=== PATIENT | male | born 1955 | race Caucasian/White ===

== ENCOUNTER → 2023-06-25 12:33 | Outpatient (BNVA) | payer OTHER, MEDICARE, SELFPAY | PROVIDERS: Family Provider Family Medicine; PCP Family Medicine; Visit Provider Internal Medicine | DX: R07.9 Chest pain, unspecified (principal); I44.0 Atrioventricular block, first degree | CPT/HCPCS: 93005 ==

== ENCOUNTER 2023-07-22 07:05 | Outpatient (CLI) | payer OTHER, MEDICARE, SELFPAY ==
--- NOTE | 2023-07-22 | ECG_ITS ---
[facility] Test Date: 2023-07-22 Pat Name: Darío Mcgrath Department: Room: Gender: Male Pharmaceutical Sales Specialist: Adriel Pollock : 1955 Requested By: Reggie Weiner Order Number: [id number] Meek MD: Reggie Weiner M.D. Interpretive Statements NAME OF STUDY: EXERCISE SESTAMIBI STRESS TEST INDICATION: [Chest Pain; Shortness of Breath, ] EXERCISE DATA: The patient was exercised by Bandar protocol. Baseline heart rate was 76 beats per minute. Baseline blood pressure was 125/86 millimeters of mercury. Target heart rate was 130 beats per minute. Maximum heart rate achieved was 141 which was 108% of the target heart rate. Maximum blood pressure was 204/92 millimeters of mercury. Total exercise time was 5 minutes and 59 seconds. Maximum METs achieved was 7. The reason for ending the test was maximal effort achieved. The patient complained of shortness of breath during the stress test, which then resolved at the end of the test. ELECTROCARDIOGRAM: BASELINE: Showed sinus rhythm, normal axis, no significant ST-T changes at the baseline noted. [] EXERCISE: At the peak exercise level, [] No significant ST-T changes suggestive of ischemia noted. [] RECOVERY: During the recovery period, heart rate dropped appropriately. No significant ST-T changes in the recovery suggestive of ischemia noted. [] CONCLUSION: 1. Exercise capacity is fair 2. Heart rate response was appropriate. 3. Blood pressure response was appropriate 4. Symptoms not suggestive of ischemia. 5. Electrocardiogram portion of the stress test was not suggestive of ischemia. 6. Nuclear scan will be documented separately. Electronically Signed On 08-07-2023 11:47:56 CDT by Reggie Weiner M.D. [id number]
[2023-07-22 07:33] VITALS: BMI 33.9
--- NOTE | 2023-07-22 07:39 | NMCV_ITS ---
NM bernard perf SPECT r/s* [id number] Darío Mcgrath Age: 68 Gender: M : 1955 Exam Date: 07/22/2023 08:15 Ordering Phys: Reggie Weiner M.D ([email or web address]) Technologist: CONTRERAS Flood Exam Location: [facility] Indications: CHEST PAIN, SHORTNESS OF BREATH STRESS TEST Please see separate stress test report in [facility] for full findings IMAGE PROTOCOL Rest/Stress 1 Exercise Day Radiopharmaceutical Dose (mCi) Administration Site Administered by Rest: Tc-99m 10.6 IV CONTRERAS Velasquez Sestamimariajose Stress:Tc-99m 32.9 IV CONTRERAS Velasquez Sestamimariajose Rest: 22-Jul-2023 60 Discovery 630 Stress: 22-Jul-2023 30 Discovery 630 Radiopharmaceutical was injected at 87 % maximum heart rate. Images obtained in supine and prone position. SPECT RESULTS Technical Quality: Excellent Raw Data Analysis: Normal Image Corrections: No attenuation or motion correction applied Summed Stress Score: 4 Summed Rest Score: 9 Summed Difference Score: 1 PERFUSION FINDINGS SPECT images demonstrate homogeneous tracer distribution throughout the myocardium. FUNCTIONAL RESULTS (calculated via Gated SPECT) Stress Image LV EF (%): 87 Stress EDV (mL):79 TID: 0.98 Stress ESV (mL):10 FUNCTIONAL FINDINGS: There is normal left ventricular systolic function. IMPRESSIONS 1. Normal myocardial perfusion imaging with no evidence of ischemia 2. LV systolic function is normal Reggie Weiner MD (Electronically Signed) Final Date: 23 July 2023 11:08 S
[2023-07-22 09:55] VITALS: BP 168/96; PULSE 96
== END 2023-07-22 07:06 | disposition home or self-care (01) ==
LOC: CDL 07:08
PROVIDERS: PCP Family Medicine; Visit Provider Internal Medicine
DX: R07.9 Chest pain, unspecified (principal); R06.02 Shortness of breath
CPT/HCPCS: 36415; 78452; 93017; A9500

== ENCOUNTER → 2024-04-12 08:28 | Outpatient (BNVA) | payer OTHER, MEDICARE, SELFPAY | PROVIDERS: PCP Family Medicine; Visit Provider Family Medicine | DX: I10 Essential (primary) hypertension (principal); I25.10 Atherosclerotic heart disease of native coronary artery without angina pectoris; N52.9 Male erectile dysfunction, unspecified; Z79.899 Other long term (current) drug therapy | CPT/HCPCS: 80053; 80061; 84403; 85025; G0103 ==